=== PATIENT | female | born 1960 | race Caucasian/White ===

== ENCOUNTER 2021-11-03 12:47 | Emergency (ER) | payer BC ==
[~2021-11-03] VITALS: Ht 160 cm; Wt 73.5 kg
[2021-11-03 12:59] VITALS: BP_SYST 164
--- NOTE | 2021-11-03 13:04 | NUR ---
Triaged pt and placed in waiting room. Pt stable. Accucheck done and results were 100.
--- NOTE | 2021-11-03 13:07 | NUR ---
Patient to ER bed 6 to gown for evaluation. Side rails up. Report given to Xi SAUNDERS.
--- NOTE | 2021-11-03 13:39 | NUR ---
Note mery in ED - 11/03/21 at 1340 by [email or web address] Patient to ER bed [address] [facility] for evaluation. Side rails up. Report given to Xi SAUNDERS.
--- NOTE | 2021-11-03 14:06 | NUR ---
Assumed care of pt who came from home c/o numbness to her extremities on and off for four days. Pt states she does not feel numb at this time but decided to come "just in case". Pt denies trauma, past medical hx. Pt arrived with and is calm and cooperative. Pt is A&Ox4, VSS. Will continue to provide care as ordered.
[2021-11-03 16:22] LABS: BILIRUBIN,URINE NEGATIVE (NEGATIVE); BLOOD, URINE NEGATIVE (NEGATIVE); CLARITY/URINE CLEAR (CLEAR); COLOR,URINE YELLOW (YELLOW); GLUCOSE,URINE NEGATIVE (NEGATIVE); KETONES,URINE NEGATIVE (NEGATIVE); LEUKOCYTE ESTERASE ,URINE NEGATIVE (NEGATIVE); NITRITE, URINE NEGATIVE (NEGATIVE); PH,URINE 5.5 (5.0-8.0); PROTEIN URINE NEGATIVE (NEGATIVE); UROBILINOGEN,URINE 0.2 (0.2-1.0)
[2021-11-03 16:51] VITALS: BP_SYST 164
--- NOTE | 2021-11-03 16:51 | NUR ---
Patient given written and verbal discharge instructions and verbalizes understanding. ER MD discussed with patient the results and treatment provided. Patient in stable condition. ID arm band removed. No Rx given. Patient educated on pain management and to follow up with PMD. Pain Scale 0/10 . Opportunity for questions provided and answered. Medication side effect fact sheet provided.
== END 2021-11-03 16:50 | disposition home or self-care (01) ==
LOC: SED 12:47
DX: Z13.9 Encounter for screening, unspecified (principal); F41.9 Anxiety disorder, unspecified; R53.1 Weakness; I10 Essential (primary) hypertension; Z79.899 Other long term (current) drug therapy
CPT/HCPCS: 81003; 93005; 99284

== ENCOUNTER 2022-08-23 04:54 | Emergency (ER) | payer BC ==
[~2022-08-23] VITALS: Ht 160 cm; Wt 73.5 kg
[2022-08-23 04:59] VITALS: BP_SYST 179
--- NOTE | 2022-08-23 05:07 | NUR ---
Patient to ER bed 03 to gown for evaluation. Side rails up. Report given to CHIP JORGE.
--- NOTE | 2022-08-23 05:15 | NUR ---
AT BEDSIDE FOR ASSESSMENT
--- NOTE | 2022-08-23 05:16 | NUR ---
BLOOD PRESSURE OF 151/116
[2022-08-23] MEDS ORDERED: VIS25 PO (05:29)
--- NOTE | 2022-08-23 05:35 | NUR ---
Patient given written and verbal discharge instructions and verbalizes understanding. ER MD discussed with patient the results and treatment provided. Patient in stable condition. ID arm band removed. Rx of given. Patient educated on pain management and to follow up with PMD. Pain Scale 0/10. Opportunity for questions provided and answered. Medication side effect fact sheet provided.
[2022-08-23 05:43] VITALS: BP_SYST 152
== END 2022-08-23 05:43 | disposition home or self-care (01) ==
LOC: SED 04:54
DX: I10 Essential (primary) hypertension (principal); R20.2 Paresthesia of skin; Z79.899 Other long term (current) drug therapy
CPT/HCPCS: 99283